=== PATIENT | female | born 1995 | race Caucasian/White ===

== ENCOUNTER 2018-10-05 12:25 | Emergency (ER) | payer MEDICAID, OTHER ==
[~2018-10-05] VITALS: Ht 152.4 cm; Wt 42.0 kg
[~2018-10-05 12:25] MED LIST: SUCR1TAB34 PO
[2018-10-05] MEDS ORDERED: LORazepam 2 mg/ml vial IV ONE (13:10)
[2018-10-05] MEDS ORDERED: ondansetron/PF 4mg/2ml inj IV ONE (13:10)
[2018-10-05] MEDS ORDERED: ketorolac tromethamine 15mg/ml inj. IV ONE (13:10)
[2018-10-05] MEDS ORDERED: normal saline 1000ML IV soln IVB ONE ×2 (13:10→14:00)
[2018-10-05 13:12] LABS: BASOPHILS % (AUTO) 0.7 % (0-1); EOSINOPHILS # (AUTO) 0.1 X10'3 (0-0.9); EOSINOPHILS % (AUTO) 1.1 % (0-6); HEMATOCRIT 40.2 % (35.0-45.0); HEMOGLOBIN 13.9 g/dl (12.0-16.0); LYMPHOCYTES # (AUTO) 1.3 X10'3 (1.1-4.8); LYMPHOCYTES % (AUTO) 28.4 % (21-51); MEAN CORPUSCULAR HGB CONC 34.5 g/dL (33.0-36.5); MEAN CORPUSCULAR VOLUME 84.1 FL (78-98); MEAN PLATELET VOLUME 7.6 FL (7.4-10.4); MONOCYTES # (AUTO) 0.3 X10'3 (0-0.9); MONOCYTES % (AUTO) 7.1 % (2-12); NEUTROPHILS % (AUTO) 62.7 % (42-75); PLATELET COUNT 281 X10'3 (140-440); RED BLOOD COUNT 4.78 X10'6 (4.20-5.60); RED CELL DISTRIBUTION WIDTH 14.6 % (11.5-14.5); WHITE BLOOD COUNT 4.7 X10'3 (4.5-11.0)
[2018-10-05 13:19] LABS: CLARITY,URINE TURBID (Clear); COLOR,URINE YELLOW (Yellow); GLUCOSE, URINE NEGATIVE (Neg); KETONES,URINE 40 mg/dl (Neg); LEUKOCYTE ESTERASE ,URINE MODERATE (Neg); NITRITES, URINE POSITIVE (Neg); OCCULT BLOOD,URINE MODERATE (Neg); PROTEIN,URINE 30 mg/dl (Neg); UROBILINOGEN,URINE 0.2 E.U/dL (0.2-1.0)
[2018-10-05 13:24] LABS: PARTIAL THROMBOPLASTIN TIME 30 SECONDS (22-32)
[2018-10-05 13:26] LABS: UA COLLECTION TYPE CLN CATCH MIDSTREAM
[2018-10-05 13:27] LABS: BACTERIA,URINE 2+ /HPF (Neg); SQUAMOUS EPITHELIAL CELL,UR MANY /LPF (FEW)
[2018-10-05 13:28] LABS: RBC,URINE 0-2 /HPF (0-2); WBC,URINE TNTC /HPF (0-4)
[2018-10-05] MEDS ORDERED: CefTRIAXone 2gm/D5W 50ml 50 ML IV ONE (14:00)
[2018-10-05 14:22] LABS: ALANINE AMINOTRANSFERASE 23 U/L (12-78); ALBUMIN 4.4 G/DL (3.4-5.0); ALKALINE PHOSPHATASE 84 IU/L (20-180); ANION GAP 17 (8-16); ASPARTATE AMINO TRANSFERASE 14 U/L (10-37); BILIRUBIN,TOTAL 0.7 MG/DL (0.1-1.0); BLOOD UREA NITROGEN 13 MG/DL (7-18); BUN/CREATININE RATIO 14.8 (6.6-38.0); CALCIUM 9.9 MG/DL (8.5-10.1); CHLORIDE 105 MMOL/L (99-107); CREATININE 0.88 MG/DL (0.40-0.90); GLUCOSE 106 MG/DL (70-104); POTASSIUM 3.7 MMOL/L (3.5-5.1); SODIUM 142 MMOL/L (135-145); TOTAL CARBON DIOXIDE 19.8 MMOL/L (24-32); TOTAL PROTEIN 8.8 G/DL (6.4-8.2); eGFR 82 ML/MIN
[2018-10-05 14:58] LABS: URINE HCG NEGATIVE (NEG)
[2018-10-05 15:30] LABS: CLARITY,URINE CLOUDY (Clear); COLOR,URINE YELLOW (Yellow); GLUCOSE, URINE NEGATIVE (Neg); KETONES,URINE >=80 mg/dl (Neg); LEUKOCYTE ESTERASE ,URINE MODERATE (Neg); NITRITES, URINE POSITIVE (Neg); OCCULT BLOOD,URINE SMALL (Neg); PROTEIN,URINE 30 mg/dl (Neg); UROBILINOGEN,URINE 0.2 E.U/dL (0.2-1.0)
[2018-10-05 15:36] LABS: MUCUS STRANDS FEW /LPF (Neg); SQUAMOUS EPITHELIAL CELL,UR FEW /LPF (FEW); UA COLLECTION TYPE CLN CATCH MIDSTREAM
[2018-10-05 15:37] LABS: BACTERIA,URINE 2+ /HPF (Neg); WBC CLUMPS,URINE MANY /HPF (NEGATIVE); WBC,URINE TNTC /HPF (0-4)
[2018-10-05] MEDS ORDERED: SULF1TAB49 PO (15:55)
[2018-10-05 16:01] VITALS: BP 115/70
== END 2018-10-05 16:22 | disposition home or self-care (01) ==
LOC: ER 12:26
DX: N12 Tubulo-interstitial nephritis, not specified as acute or chronic (principal); N39.0 Urinary tract infection, site not specified; F12.90 Cannabis use, unspecified, uncomplicated; Z79.2 Long term (current) use of antibiotics; Z79.899 Other long term (current) drug therapy; Z98.890 Other specified postprocedural states
CPT/HCPCS: 36415; 80053; 81001; 81025; 83605; 84145; 85025; 85610; 85730; 87040; 87077; 87088; 87186; 87210; 96365; 96375; 99284; J0696; J1885; J2060; J2405; J7030

== ENCOUNTER 2019-07-11 12:56 | Emergency (ER) | payer MEDICAID ==
[~2019-07-11] VITALS: Ht 152.4 cm; Wt 40.5 kg
[2019-07-11 13:05] VITALS: BP 123/83
--- NOTE | 2019-07-11 13:41 | NUR ---
pt is 23 yo female c/o grd level fall yesterday around 1800, pt was jogging and hit a sand bag, fell on concrete, c/o left foot swelling, bruising by 5th digit, abrasion to left knee, able to amb with steady gait, waiting to be evaluated by provider
== END 2019-07-11 16:14 | disposition home or self-care (01) ==
LOC: ER 12:57
DX: S90.32XA Contusion of left foot, initial encounter (principal); S80.02XA Contusion of left knee, initial encounter; F12.90 Cannabis use, unspecified, uncomplicated; Z98.890 Other specified postprocedural states; Z79.899 Other long term (current) drug therapy; W01.0XXA Fall on same level from slipping, tripping and stumbling without subsequent striking against object, initial encounter; Y93.89 Activity, other specified; Y92.89 Other specified places as the place of occurrence of the external cause; Y99.8 Other external cause status
CPT/HCPCS: 73564; 73630; 99284

== ENCOUNTER 2021-02-26 13:03 | Emergency (ER) | payer MEDICAID ==
[~2021-02-26] VITALS: Ht 154.9 cm; Wt 40.9 kg
[2021-02-26 14:37] VITALS: BP 119/56
[2021-02-26 17:08] LABS: CLARITY,URINE SLIGHTLY CLOUDY (Clear); GLUCOSE, URINE NEGATIVE (Neg); KETONES,URINE 15 mg/dl (Neg); LEUKOCYTE ESTERASE ,URINE NEGATIVE (Neg); NITRITES, URINE NEGATIVE (Neg); OCCULT BLOOD,URINE TRACE-INTACT (Neg); PROTEIN,URINE NEGATIVE (Neg); URINE HCG NEGATIVE (NEG); UROBILINOGEN,URINE 0.2 E.U/dL (0.2-1.0)
[2021-02-26 17:10] LABS: COLOR,URINE STRAW (Yellow); UA COLLECTION TYPE CLN CATCH MIDSTREAM
[2021-02-26 17:13] LABS: MUCUS STRANDS MANY /LPF (Neg); SQUAMOUS EPITHELIAL CELL,UR MODERATE /LPF (FEW)
[2021-02-26 17:14] LABS: BACTERIA,URINE 2+ /HPF (Neg)
[2021-02-26 17:15] LABS: WBC,URINE 0-4 /HPF (0-4)
[2021-02-26 17:16] LABS: RBC,URINE 0-2 /HPF (0-2)
== END 2021-02-26 17:37 | disposition home or self-care (01) ==
LOC: ER 13:04
DX: D36.7 Benign neoplasm of other specified sites (principal); R30.0 Dysuria; R11.0 Nausea; R19.7 Diarrhea, unspecified; N12 Tubulo-interstitial nephritis, not specified as acute or chronic; F12.90 Cannabis use, unspecified, uncomplicated; Z98.890 Other specified postprocedural states; Z88.8 Allergy status to other drugs, medicaments and biological substances; Z79.899 Other long term (current) drug therapy
CPT/HCPCS: 81001; 81025; 99283

== ENCOUNTER 2021-10-12 14:46 | Emergency (ER) | payer MEDICAID ==
[~2021-10-12] VITALS: Ht 157.5 cm; Wt 38.0 kg
[2021-10-12 15:26] VITALS: BP 133/82
[2021-10-12] MEDS ORDERED: CEPH250T PO (16:41)
== END 2021-10-12 16:51 | disposition home or self-care (01) ==
LOC: ER 14:46
DX: L72.0 Epidermal cyst (principal); F12.90 Cannabis use, unspecified, uncomplicated; Z88.4 Allergy status to anesthetic agent
CPT/HCPCS: 99283

== ENCOUNTER 2024-02-27 13:54 | Emergency (ER) | payer MEDICAID ==
[~2024-02-27] VITALS: Ht 160 cm; Wt 45.0 kg
[2024-02-27 14:20] VITALS: BP 130/84; PULSE 80; RESP 18; TEMP 97.8; O2SAT 100
[2024-02-27 16:58] LABS: BASOPHILS % (AUTO) 0.9 % (0-1); EOSINOPHILS % (AUTO) 1.1 % (0-6); HEMATOCRIT 32.5 % (35.0-45.0); HEMOGLOBIN 10.8 g/dl (12.0-16.0); LYMPHOCYTES # (AUTO) 1.3 X10'3 (1.1-4.8); LYMPHOCYTES % (AUTO) 34.3 % (21-51); MEAN CORPUSCULAR HGB CONC 33.1 g/dL (33.0-36.5); MEAN CORPUSCULAR VOLUME 78.5 FL (78-98); MONOCYTES # (AUTO) 0.3 X10'3 (0-0.9); MONOCYTES % (AUTO) 6.7 % (2-12); NEUTROPHILS # (AUTO) 2.2 X10'3 (1.8-7.7); PLATELET COUNT 340 X10'3 (140-440); RED BLOOD COUNT 4.14 X10'6 (4.20-5.60); RED CELL DISTRIBUTION WIDTH 17.1 % (11.5-14.5); WHITE BLOOD COUNT 3.9 X10'3 (4.5-11.0)
[2024-02-27 17:16] LABS: ALANINE AMINOTRANSFERASE 19 U/L (12-78); ALBUMIN 3.7 G/DL (3.4-5.0); ALKALINE PHOSPHATASE 75 IU/L (46-116); ANION GAP 8 (8-16); ASPARTATE AMINO TRANSFERASE 13 U/L (10-37); BILIRUBIN,TOTAL 0.8 MG/DL (0.1-1.0); BLOOD UREA NITROGEN 10 MG/DL (7-18); BUN/CREATININE RATIO 15.4 (10.0-20.0); CALCIUM 9.8 MG/DL (8.5-10.1); CHLORIDE 104 MMOL/L (99-107); CREATININE 0.65 MG/DL (0.40-0.90); GLUCOSE 93 MG/DL (70-104); LIPASE 38 U/L (16-77); POTASSIUM 3.7 MMOL/L (3.5-5.1); SODIUM 139 MMOL/L (135-145); TOTAL CARBON DIOXIDE 27.1 MMOL/L (24-32); TOTAL PROTEIN 7.5 G/DL (6.4-8.2); eCRCL 93 ML/MIN; eGFR > 90 ML/MIN
[2024-02-27 19:35] LABS: URINE HCG NEGATIVE (NEG)
[2024-02-27 19:36] LABS: BILIRUBIN,URINE NEGATIVE (Neg); CLARITY,URINE SLIGHTLY CLOUDY (Clear); COLOR,URINE YELLOW (Yellow); GLUCOSE, URINE NEGATIVE (Neg); KETONES,URINE 40 mg/dl (Neg); LEUKOCYTE ESTERASE ,URINE NEGATIVE (Neg); NITRITES, URINE NEGATIVE (Neg); OCCULT BLOOD,URINE MODERATE (Neg); PROTEIN,URINE NEGATIVE (Neg); UROBILINOGEN,URINE 0.2 E.U/dL (0.2-1.0)
[2024-02-27 19:45] LABS: UA COLLECTION TYPE CLN CATCH MIDSTREAM
[2024-02-27 19:52] LABS: BACTERIA,URINE 1+ /HPF (Neg); SQUAMOUS EPITHELIAL CELL,UR MODERATE /LPF (FEW); WBC,URINE 0-4 /HPF (0-4)
[2024-02-27 20:18] LABS: HCG SERUM QL NEGATIVE
[2024-02-27] MEDS: ketorolac trometh 30MG/ML vial 30 MG/ML VIAL IM ONE (20:47)
[2024-02-27] MEDS: ondansetron 4mg rapidly disintigrating tab PO ONE (20:48)
[2024-02-27] MEDS: dicyclomine 10 MG capsule PO ONE (20:48)
[2024-02-27] MEDS ORDERED: ONDA-243 PO (20:51)
[2024-02-27] MEDS ORDERED: DICY20TA17 PO (20:51)
== END 2024-02-27 20:50 | disposition home or self-care (01) ==
LOC: ER 13:54
DX: R10.13 Epigastric pain (principal); F12.90 Cannabis use, unspecified, uncomplicated; Z88.4 Allergy status to anesthetic agent; Z79.899 Other long term (current) drug therapy
CPT/HCPCS: 36415; 71045; 74176; 76700; 80053; 81001; 81025; 83690; 84703; 85025; 93005; 99285